=== PATIENT | female | born 1940 | race Caucasian/White ===

== ENCOUNTER → 2016-04-14 | Outpatient (CLI) | payer OTHER | LOC: FIMAGING 12:38 | PROVIDERS: ATTEND Family Medicine Sports Medicine | DX: R91.8 Other nonspecific abnormal finding of lung field (principal); Z85.3 Personal history of malignant neoplasm of breast ==

== ENCOUNTER 2016-04-25 10:37 | Emergency (ER) | payer OTHER ==
--- NOTE | 2016-04-25 11:26 | EDPHY ---
H & P Stated Complaint: R SHOULDER PAIN AFTER T/F LAST NIGHT Time Seen by Provider: 04/25/16 10:56 HPI/ROS: CHIEF COMPLAINT: Right shoulder pain, left elbow pain and left thumb pain following mechanical fall last night HISTORY OF PRESENT ILLNESS: The patient presents to the ED with complaints of right shoulder pain, left elbow pain and left thumb pain following a mechanical fall last night. Patient did not strike her head or lose consciousness. She has no complaints of headache or neck pain. The patient denies abdominal pain, chest pain, low back pain, shortness of breath or additional complaints. She has no associated numbness or weakness. The patient reports her primary pain is in her right shoulder and it is worsened with movement. REVIEW OF SYSTEMS: A comprehensive 10 point review of systems is otherwise negative aside from elements mentioned in the history of present illness. Source: Patient Exam Limitations: No limitations - Personal History Current Tetanus/Diphtheria Vaccine: Yes Current Tetanus Diphtheria and Acellular Pertussis (TDAP): Yes Tetanus Vaccine Date: 2003 - Medical/Surgical History Hx Asthma: No Hx Chronic Respiratory Disease: No Hx Diabetes: No Hx Cardiac Disease: No Hx Renal Disease: No Hx Cirrhosis: No Hx Alcoholism: No Hx HIV/AIDS: No Hx Splenectomy or Spleen Trauma: No Other PMH: MEDICAL- ARTHRITIS, DEPRESSION, GERD, BREAST CA. SURGICAL- CERVICAL FUSION, X2 BACK, APPY, B FEET, B HANDS, L BREAST LUMPECTOMY - Social History Smoking Status: Never smoked - Physical Exam Exam: General Appearance: Alert, no distress Head: Atraumatic Eyes: Pupils equal, round, reactive ENT, Mouth: No hemotympanum, no oral trauma Neck: Nontender, trachea midline Respiratory: No chest wall tender, subcutaneous air, lungs clear bilaterally Cardiovascular: Regular rate and rhythm Abdomen: Abdomen is soft and nontender, pelvis stable Skin: Abrasion to left elbow Back: No midline T/L/S pain Extremities: Tenderness to palpation over the right humeral head, tenderness to palpation base of left thumb, tenderness to palpation left olecranon Neurological: A&Ox3, normal motor function, normal sensory exam Constitutional: Initial Vital Signs Temperature (C) 37.1 C 04/25/16 10:40 Heart Rate 74 04/25/16 10:40 Respiratory Rate 14 04/25/16 10:40 Blood Pressure 136/69 H 04/25/16 10:40 O2 Sat (%) 91 L 04/25/16 10:40 O2 Delivery Mode Room Air Allergies/Adverse Reactions: acetaminophen [From Darvocet-N 100] Allergy (Verified 11/30/11 07:38) aspirin Allergy (Verified 11/30/11 07:38) codeine [Codeine] Allergy (Verified 11/30/11 07:38) propoxyphene napsylate [From Darvocet-N 100] Allergy (Verified 11/30/11 07:38) Home Medications: Medication Instructions Recorded Ascorbic Acid [Vitamin C] 1,000 mg PO DAILY 11/30/11 CALCIUM CARBONATE/VITAMIN D3 1 each PO DAILY 11/30/11 [CALCIUM + D 600 MG TABLET] Docusate Sodium [Colace] 60 mg PO 11/30/11 Fish Oil/Dha/Epa [Fish Oil 1,200 1 each PO DAILY 11/30/11 mg Fish Oil] Fluocinonide 0.05% [Lidex 0.05% 1 yanely TP BID 11/30/11 Ointment (RX)] Fluticasone Nasal [Flonase Nasal 2 sprays NASAL DAILY 11/30/11 [place] (RX)] Fosamax 70 Mg 11/30/11 Gabapentin [Neurontin 300 MG (RX)] 300 mg PO HS 11/30/11 Lactobacillus Rhamnosus GG 1 each PO DAILY 11/30/11 [Culturelle] Leflunomide [Arava 20 mg (RX)] 20 mg PO DAILY 11/30/11 Levothyroxine [Synthroid 88 mcg 88 mcg PO DAILY06 11/30/11 (RX)] Methylphenidate HCl [Ritalin 5mg 11/30/11 (RX)] Multivitamins [Multivitamin (OTC)] 1 each PO DAILY 11/30/11 Nortriptyline HCl [Pamelor 50 mg 50 mg PO HS 11/30/11 (RX)] Omeprazole [Prilosec 40 mg] 40 mg PO DAILY 11/30/11 Oxycodone HCl [Oxyir] 5 mg PO Q4 11/30/11 Prednisone 11/30/11 Quetiapine Fumarate 100 mg PO HS 11/30/11 Quetiapine Fumarate [Seroquel Xr] 150 mg PO HS 11/30/11 inFLIXimab [Remicade Inj 100 mg 0 mg IV ONCE 11/30/11 (RX)] oxyCODONE/APAP 5/325 [Percocet 1 tab PO Q4-6PRN PRN 11/30/11 5/325 (RX)] traMADol [Ultram 50 mg (RX)] 50 mg PO Q4 11/30/11 Oxycodone Ir [Oxy Ir 5 mg (RX)] 1 - 2 tab PO Q4-6PRN PRN #20 tab 04/18/13 Medical Decision Making - Diagnostics Imaging: Right shoulder x-ray: Small minimally displaced avulsion fracture involving the greater tuberosity. Images reviewed by myself. Formal interpretation by Radiology pending. Left elbow x-ray: Negative for acute fracture, DJD noted. Images reviewed by myself. Formal interpretation by Radiology pending Left hand x-ray: Negative for acute fracture, DJD noted, images reviewed by myself. Formal interpretation by Radiology pending. ED Course/Re-evaluation: The patient presents to the ED for evaluation of bilateral upper extremity pain following a mechanical fall last night. She is noted to have a minimally displaced fracture refer greater tuberosity on her right humerus. The patient was placed in a sling. The patient will be advised to ice the area. She is also given a prescription for pain medication. She is noted to be neurologically intact. She is referred to our on-call orthopedic surgeon Dr. Dewayne Conti for an outpatient visit this week. Differential Diagnosis: Differential diagnosis considered includes fracture, sprain, dislocation, neurovascular injury Departure - Departure Disposition: Home, Routine, Self-Care Clinical Impression: Humerus fracture Condition: Good Instructions: Proximal Humerus Fracture (ED) Additional Instructions: 1. Wear sling for comfort until seen in follow-up by the orthopedic surgeon you have referred to Dr. Dewayne Conti. 2. Ice area as directed. 3. [place] as needed for severe pain. Referrals: Dewayne Conit MD [Medical Doctor] - As per Instructions
[2016-04-25 12:15] VITALS: BP 136/66; PULSE 72; RESP 16; TEMP 97.9; O2SAT 90
== END 2016-04-25 12:14 | disposition home or self-care (01) ==
DX: S42.301A Unspecified fracture of shaft of humerus, right arm, initial encounter for closed fracture (principal); Z85.3 Personal history of malignant neoplasm of breast; W18.39XA Other fall on same level, initial encounter

== ENCOUNTER → 2016-07-07 | Outpatient (CLI) | payer OTHER | LOC: FIMAGING 12:49 | PROVIDERS: ATTEND Family Medicine Sports Medicine | DX: Z12.31 Encounter for screening mammogram for malignant neoplasm of breast (principal); Z85.3 Personal history of malignant neoplasm of breast | CPT/HCPCS: G0202 ==

== ENCOUNTER → 2016-10-14 | Outpatient (CLI) | payer OTHER | LOC: FIMAGING 09:22 | PROVIDERS: ATTEND Family Medicine Sports Medicine | DX: Z13.820 Encounter for screening for osteoporosis (principal); M81.0 Age-related osteoporosis without current pathological fracture; Z78.0 Asymptomatic menopausal state; Z98.1 Arthrodesis status ==

== ENCOUNTER → 2017-07-13 | Outpatient (CLI) | payer OTHER | LOC: FIMAGING 10:11 | PROVIDERS: ATTEND Family Medicine Sports Medicine | DX: Z12.31 Encounter for screening mammogram for malignant neoplasm of breast (principal); Z85.3 Personal history of malignant neoplasm of breast ==